=== PATIENT | male | born 1985 | race Two or more races ===

== ENCOUNTER → 2025-04-14 | Day surgery (SDC) | payer MEDICAID ==
[~2025-04-14] VITALS: Ht 188 cm; Wt 122.5 kg
[~2025-04-14] MED LIST: ACETAMINOPHEN IV 1000 MG/100ML (10MG/ML) IV PRN; ALBUTEROL SULF 2.5 MG/0.5ML(0.5%) NEB SOLN NEB ONE; HYDROmorphone HCL 2 MG/ML VL/or syr IV PRN; HYDROmorphone HCL 2 MG/ML VL/or syr ONE; IBUP-1456 PO; ONDANSETRON HCL 4 MG/2 ML VIAL IV PRN; ONDANSETRON HCL 4 MG/2 ML VIAL ONE; PROPOFOL 10 MG/ML 20 ML IV ONE; ROPIVACAINE 0.5% (5MG/ML) 20ML AMPULE IJ ONE; fentaNYL CITRATE 100 MCG/2 ML VL IV PRN; fentaNYL CITRATE 100 MCG/2 ML VL ONE
[2025-04-14] MEDS: ceFAZolin 2 GM/D5W50ml 50 ML IV ONE (11:05)
[2025-04-14] MEDS: ROPIVACAINE 0.5% (5MG/ML) 20ML AMPULE IJ ONE (12:46)
--- NOTE | 2025-04-14 13:08 | DVHOP2 ---
Operative Report - 2 Report Details Date: 04/14/25 Preop Diagnosis: Left comminuted, displaced, patella fracture Postop Diagnosis: That is comminuted, displaced Surgeon: Fiona Gallardo MD [employer]: Anurag VITAL Anesthesiologist: Annabelle Anesthesia: General, Local Implant: Arthrex patella plate, cannulated screw, multiple locking screws Consent: The patient was informed of the risks and benefits of the procedure. These include but are not limited to complications of anesthesia, postoperative infection, incomplete relief of symptoms, recurrence of symptoms, damage to blood vessels, nerves and tendons, deep venous thrombosis, pulmonary embolism and possible need for repeat surgery in the future. Complications: None Estimated Blood Loss: 25 cc Fluids: See anesthesia record Findings: Patient had a comminuted displaced patella fracture with multiple fragments. I had to excise one of the fragments and attempted ORIF. Indications for Surgery: Unstable left knee injury Name of Procedure Performed 1. Left knee open reduction internal fixation patella fracture 2. Left knee partial patellectomy 3. C-arm fluoroscopy Procedure Details Procedure Details: Patient was brought to the operating room and placed on the table in supine position. General anesthetic was given. Patient received 2 g IV Ancef. Tourniquet applied to the left thigh. Left lower extremity was shaved, prepped, and draped in sterile fashion. Surgical time-out was performed verifying patient, laterality, and procedure. Extremity was elevated, exsanguinated with Esmarch and tourniquet inflated to 250 mmHg. Midline incision was made. I used scissors in spreading fashion to dissect the subcutaneous tissue off the underlying extensor mechanism. It was immediately obvious that he has significantly comminuted left patella fracture but due to the patient's age I elected to attempt an open reduction internal fixation. I sharply excised periosteum at the fracture site with scalpel. I used a curette rongeur and irrigation to remove fracture hematoma. There was a small proximal lateral fragment that I sharply excised thereby performing a partial patellectomy. There were three remaining fragments. I reduced the intermediate fragment to the proximal fragment and held it with two K-wires. I reduced the distal fragment to the proximal fragments with tenaculum then passed two longitudinal K-wires. I then removed the two K-wires which were holding the intermediate fragment. I then brought up the Arthrex plate and decided on the large hook plate. I applied this to the dorsal patella and split the patella tendon with scalpel and tapped the hook into the bone with tamp. I removed one of the longitudinal K-wires. I then placed multiple screws both proximally and distally utilizing drill guide and C-arm fluoroscopy to aid visualization and positioning of the screws. Technique involved drilling, application of depth gauge and insertion of locking screw. I then removed the reduction forceps. I again passed a longitudinal K-wire to capture the intermediate fragment, measured length then inserted a cannulated screw. I then used a suture tape passing through one of the holes in the plate and thereby fixed the patellar tendon to the plate. I attempted this proximally however the suture tape would not pass through the hole in the plate so I passed the suture through the quadriceps tendon and then did a [id number] pass through the patella tendon for additional fixation. Retinaculum tissue was closed with 1. Ethibond. The wound was irrigated copiously. Tourniquet released and hemostasis verified. Deep subcutaneous tissue closed with 0 Vicryl. Superficial subcutaneous tissue closed with 2-0 Vicryl. Skin closed with kenneth and dressed sterilely. Patient to have knee immobilizer. Patient was brought to the recovery room in stable condition having tolerated the procedure very well. Condition Stable Disposition Still a Patient FIONA GALLARDO MD Apr 14, 2025 13:08
[2025-04-14 13:12] VITALS: PULSE 84; RESP 12; TEMP 97.9; O2SAT 95
[2025-04-14 13:41] VITALS: PULSE 94; RESP 14; O2SAT 94
[2025-04-14 13:55] VITALS: PULSE 99; RESP 12; O2SAT 95
[2025-04-14] MEDS: ALBUTEROL SULF 2.5 MG/0.5ML(0.5%) NEB SOLN ONE (14:21)
[2025-04-14 14:45] VITALS: PULSE 95; RESP 15; O2SAT 96
--- NOTE | 2025-04-14 14:58 | DVH ---
C-ARM FLUOROSCOPY: PROCEDURE: ORIF left patella FLUOROSCOPY TIME: 46 seconds Air Kerma: 2.5 mgy FINDINGS: Spot intraoperative C arm radiographs demonstrating ORIF left patellar fracture. IMPRESSION: 1. Please refer to surgical report for detailed findings.
--- NOTE | 2025-04-14 15:07 | DVH ---
CLINICAL INDICATION: L PATELLA ORIF TECHNIQUE: 3 radiographic views of the patella were obtained. Comparison: None FINDINGS/IMPRESSION: 3 images of an open reduction internal fixation of the comminuted patellar fracture seen. Total fluoro time 46 seconds Cumulative dose: 2 6 mGy Further detail refer to operative report.
[2025-04-14 15:13] VITALS: BP 143/80; PULSE 99; RESP 12; O2SAT 96
== END | disposition home or self-care (01) ==
LOC: SUR 09:19
PROVIDERS: ATTEND Orthopaedic Surgery
DX: S82.042A Displaced comminuted fracture of left patella, initial encounter for closed fracture (principal); X58.XXXA Exposure to other specified factors, initial encounter; Y93.89 Activity, other specified; Y92.89 Other specified places as the place of occurrence of the external cause; Y99.8 Other external cause status; G89.18 Other acute postprocedural pain
CPT/HCPCS: 27524; 64447; 73560; 76000; 94640; C1713; C1769; C1776; J0690; J1100; J1171; J2405; J2704; J2795; J3010